=== PATIENT | female | born 2000 | race African-American/Black ===

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

== ENCOUNTER 2019-01-28 09:21 | Emergency (ER) | payer OTHER ==
[2019-01-28] MEDS: KETOROLAC 60 MG INJ IM (10:30)
[2019-01-28 10:37] LABS: URINE BLOOD (Dip) POC Trace-lysed (NEGATIVE); URINE GLUCOSE (Dip) POC Negative (NEGATIVE); URINE KETONES (Dip) POC Negative (NEGATIVE); URINE LEUKOCYTE EST (Dip) POC Negative (NEGATIVE); URINE NITRITE (Dip) POC Negative (NEGATIVE); URINE TOTAL PROTEIN POC Negative (NEGATIVE)
== END 2019-01-28 11:30 | disposition home or self-care (01) ==
LOC: FTE 09:21
DX: M54.5 Low back pain (principal)
CPT/HCPCS: 72100; 81003; 81025; 96372; 99284-25